=== PATIENT | female | born 1965 | race American Indian/Alaskan Native ===

== ENCOUNTER 2018-04-06 14:18 | Emergency (ER) | payer MEDICAID ==
[2018-04-06 14:19] VITALS: BMI 26.4
[2018-04-06 14:34] VITALS: BP 146/87; PULSE 100; RESP 18; O2SAT 99
[2018-04-06 14:48] VITALS: TEMP 98.4
--- NOTE | 2018-04-06 15:13 | ED PDOC ---
HPI: Dental Pain/Injury Time Seen by Provider: 04/06/18 14:27 Chief Complaint (Nursing): Dental Pain Chief Complaint (Provider): toothache History Per: Patient Additional Complaint(s): 52 yo female, denies any PMH, presents to ED for evaluation of dental pain. Pt reports she chipped her left lateral incisor yesterday and since that time has been experiencing pain. Pt can not taken Tylenol or NSAIDS; howevr, can take Tylenol with another drug "mixed." Past Medical History Reviewed: Nursing Documentation, Vital Signs Vital Signs: Last Vital Signs Temp 98.4 F 04/06/18 14:48 Pulse 100 H 04/06/18 14:31 Resp 18 04/06/18 14:31 BP 146/87 04/06/18 14:31 Pulse Ox 99 04/06/18 14:31 - Medical History PMH: HTN, Pancreatitis (CHRONIC) Denies: Asthma, Bronchitis, COPD, Emphysema, Pneumonia, Sleep Apnea - Family History Family History: States: Unknown Family Hx - Home Medications Home Medications: Ambulatory Orders Medication Instructions Recorded Lisinopril 30 mg PO DAILY #30 tablet 04/02/18 Amylase/Lipase/Protease [Pancrease 35,000 unit PO AC #14 ecc 04/03/18 [id number] [id number] U] Pantoprazole [Protonix EC Tab] 40 mg PO 0600 #30 ect 04/03/18 Lidocaine 2% Viscous 15 ml TOP TID PRN #1 bottle 04/06/18 Penicillin VK [Penicillin VK Tab] 500 mg PO BID #14 tab 04/06/18 - Allergies Allergies/Adverse Reactions: Allergies Allergy/AdvReac Type Severity Reaction Status Date / Time acetaminophen [From Tylenol] Allergy ANAPHYLAXIS Verified 03/31/18 10:20 NSAIDS (Non-Steroidal Allergy ANGIOEDEMA Verified 03/31/18 10:20 Anti-Inflamma Review of Systems ROS Statement: Except As Marked, All Systems Reviewed And Found Negative ENT: Positive for: Other (toothache) Physical Exam - Reviewed Nursing Documentation Reviewed: Yes Vital Signs Reviewed: Yes - Physical Exam Appears: Positive for: Well, Non-toxic, No Acute Distress Head Exam: Positive for: ATRAUMATIC, NORMAL INSPECTION, NORMOCEPHALIC Skin: Positive for: Normal Color, Warm, DRY Eye Exam: Positive for: EOMI, Normal appearance, PERRL ENT: Positive for: Other (poor dentition, upper 1,2,3rd teeth missing, no erythema, eema to gumline) Neck: Positive for: Normal, Painless ROM Cardiovascular/Chest: Positive for: Regular Rate, Rhythm Respiratory: Positive for: CNT, Normal Breath Sounds Gastrointestinal/Abdominal: Positive for: Normal Exam, Soft Back: Positive for: Normal Inspection Extremity: Positive for: Normal ROM Neurologic/Psych: Positive for: Alert, Oriented - ECG O2 Sat by Pulse Oximetry: 99 Medical Decision Making Medical Decision Making: Pt advised that narcotics will not pe prescribed on today's visit and if she is allergic to NSAIDs/Tylenol, Percocet can not be prescribed for her safety. Pt advised PCN and Viscous Lido can be RXd for infection control and pain. Pt declined and ambulated out of ED Disposition - Clinical Impression Clinical Impression: Dental injury, Toothache - Patient ED Disposition Is Patient to be Admitted: No - Disposition Disposition: Routine/Home Disposition Time: 15:13 Condition: STABLE Prescriptions: Lidocaine 2% Viscous 15 ml TOP TID PRN #1 bottle PRN Reason: Pain Penicillin VK [Penicillin VK Tab] 500 mg PO BID #14 tab Instructions: Dental Pain (DC) Forms: [facility] ([place]rian)
== END 2018-04-06 15:22 | disposition home or self-care (01) ==
LOC: H.ER 14:18
DX: K08.89 Other specified disorders of teeth and supporting structures (principal); I10 Essential (primary) hypertension; Z87.19 Personal history of other diseases of the digestive system